=== PATIENT | female | born 1955 | race Caucasian/White ===

== ENCOUNTER → 2018-04-03 | Outpatient (CLI) | payer BC ==
[~2018-04-03] MED LIST: FOLI1 PO; HYDR1TAB94 PO; IBUP800 PO; LANS30EC PO; LEUC5 PO; METF500 PO; SIMV40 PO; VALS80 PO
== END ==
LOC: LAB 12:15 → LAB SHORT 12:15
DX: N39.0 Urinary tract infection, site not specified (principal)
CPT/HCPCS: 87086

== ENCOUNTER → 2018-07-16 | Outpatient (CLI) | payer BC | END | disposition home or self-care (01) | LOC: PLD 10:07 → LAB SHORT 10:07 | DX: D48.5 Neoplasm of uncertain behavior of skin (principal) | CPT/HCPCS: 88305 ==

== ENCOUNTER 2020-09-06 08:05 | Day surgery (SDC) | payer MEDICARE, OTHER ==
[~2020-09-06] VITALS: Ht 165.1 cm; Wt 86.1 kg
[~2020-09-06 08:05] MED LIST changes: +CYCL10 PO; +HYDROCHLOROTH12.5 MG PO; +JARDIANCE10 MG PO; +LOSARTAN POTAS100 M1 PO; +METTREX2.5 PO
[2020-09-06] MEDS ORDERED: PROC25S (08:28)
[2020-09-06] MEDS ORDERED: VALS80 (08:29)
== END 2020-09-06 10:10 | disposition home or self-care (01) ==
LOC: ORSCSDS 08:05
PROVIDERS: Internal Medicine Gastroenterology
PROC: 0DBK8ZX Excision of Ascending Colon, Via Natural or Artificial Opening Endoscopic, Diagnostic (ICD-10-PCS; principal; 2020-09-06 09:30)
PROC: 0DBL8ZX Excision of Transverse Colon, Via Natural or Artificial Opening Endoscopic, Diagnostic (ICD-10-PCS; principal; 2020-09-06 09:30)
PROC: 0DBM8ZX Excision of Descending Colon, Via Natural or Artificial Opening Endoscopic, Diagnostic (ICD-10-PCS; principal; 2020-09-06 09:30)
DX: Z12.11 Encounter for screening for malignant neoplasm of colon (principal); D12.2 Benign neoplasm of ascending colon; D12.3 Benign neoplasm of transverse colon; D12.4 Benign neoplasm of descending colon; K64.1 Second degree hemorrhoids; K64.4 Residual hemorrhoidal skin tags; I10 Essential (primary) hypertension; E11.9 Type 2 diabetes mellitus without complications; Z87.891 Personal history of nicotine dependence; Z79.899 Other long term (current) drug therapy; Z79.84 Long term (current) use of oral hypoglycemic drugs
CPT/HCPCS: 82947; 88305; J0461; J2405; J2704; J7120

== ENCOUNTER → 2021-08-07 | Outpatient (CLI) | payer MEDICARE, OTHER ==
[~2021-08-07] MED LIST changes: +PROC25S; +VALS80
== END | disposition home or self-care (01) ==
LOC: LAB SHORT 11:14
DX: L57.0 Actinic keratosis (principal)
CPT/HCPCS: 88305

== ENCOUNTER 2023-05-04 01:38 | Day surgery (SDC) | payer MEDICARE, OTHER | END 2023-05-04 23:19 | disposition home or self-care (01) | LOC: ATC 01:38 | DX: L40.50 Arthropathic psoriasis, unspecified (principal); Z88.2 Allergy status to sulfonamides ==

== ENCOUNTER 2023-11-04 08:56 | Day surgery (SDC) | payer MEDICARE, OTHER ==
[~2023-11-04] VITALS: Ht 160 cm; Wt 80.0 kg
[~2023-11-04 08:56] MED LIST changes: +Lactated Ringer's 1,000 ML IV ONE; +propofoL 50 ML IV ONE
[2023-11-04] MEDS ORDERED: Ondansetron HCl 2 MG / ML 2ML Vial ONE (10:41)
[2023-11-04] MEDS ORDERED: Lactated Ringer's 1,000 ML IV ONE (11:12)
[2023-11-04 11:57] VITALS: BP 111/60
== END 2023-11-04 11:55 | disposition home or self-care (01) ==
LOC: ORSCSDS 08:56
PROVIDERS: Internal Medicine Gastroenterology
PROC: 0DBK8ZX Excision of Ascending Colon, Via Natural or Artificial Opening Endoscopic, Diagnostic (ICD-10-PCS; principal; 2023-11-04 10:15)
DX: R19.4 Change in bowel habit (principal); Z86.010 Personal history of colon polyps; K63.5 Polyp of colon; E11.9 Type 2 diabetes mellitus without complications; Z79.4 Long term (current) use of insulin; Z79.899 Other long term (current) drug therapy
CPT/HCPCS: 82947; 88305; J2405; J2704; J7120